=== PATIENT | male | born 1970 | race Caucasian/White ===

== ENCOUNTER 2017-02-05 11:30 | Emergency (ER) | payer SELFPAY ==
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
[2017-02-05 14:49] VITALS: BP 111/61
== END 2017-02-05 13:20 | disposition home or self-care (01) ==
LOC: ER 11:30
DX: S16.1XXA Strain of muscle, fascia and tendon at neck level, initial encounter (principal); V89.2XXA Person injured in unspecified motor-vehicle accident, traffic, initial encounter; Y92.410 Unspecified street and highway as the place of occurrence of the external cause